=== PATIENT | male | born 1970 | race Caucasian/White ===

== ENCOUNTER 2018-09-23 17:56 | Emergency (ER) | payer OTHER ==
--- NOTE | 2018-09-23 18:43 | RAD ---
PORTABLE CHEST: 09/23/18 HISTORY: Chest pain. Heart size and mediastinum are within normal limits. The lungs are clear of infiltrates. No significa nt bony findings. IMPRESSION: No active intrathoracic disease. POS: OFF
[2018-09-23 18:59] LABS: #Basophils 0.1 thou/uL (0.0-0.2); #Eosinphils 0.2 thou/uL (0.0-0.7); #Lymphocytes 2.7 thou/uL (1.20-3.40); #Monocytes 0.5 thou/uL (0.11-0.59); #Neutrophils 5.6 thou/uL (1.40-6.50); %Eosinophils 2.2 % (0.0-10.0); %Lymphocytes 29.8 % (21.0-51.0); %Monocytes 5.5 % (0.0-10.0); %Neutrophils 61.5 % (42.0-75.0); Hemoglobin 13.7 g/dL (14.0-18.0); Mean Corpuscular Hemoglobin 31.7 pg (27.0-31.0); Mean Corpuscular Volume 93.2 fL (78.0-98.0); Mean Platelet Volume 7.5 fL (7.4-10.4); Platelet Count 296 thou/uL (130-400); Red Blood Cell (RBC) Count 4.34 mill/uL (4.70-6.10); White Blood Cell (WBC) Count 9.1 thou/uL (4.8-10.8)
[2018-09-23 19:31] LABS: ALT (SGPT) 46 U/L (8-55); AST (SGOT) 30 U/L (5-34); Albumin 4.6 g/dL (3.5-5.0); Alkaline Phosphatase 74 U/L (40-150); Anion Gap 15 mmol/L (10-20); BUN (Urea Nitrogen) 15 mg/dL (8.9-20.6); Bilirubin, Total 0.2 mg/dL (0.2-1.2); CK (CPK) 691 U/L (30-200); Calc. Creatinine Clearance 0 mL/min (70-130); Calcium 10.1 mg/dL (7.8-10.44); Carbon Dioxide 28 mmol/L (22-29); Chloride 101 mmol/L (98-107); Estimated GFR-MDRD 71; Globulin 3.4 g/dL (2.4-3.5); Glucose 125 mg/dL (70-105); Lipase 32 U/L (8-78); Potassium 4.3 mmol/L (3.5-5.1); Sodium 140 mmol/L (136-145)
--- NOTE | 2018-09-25 11:05 | EKG ---
Test Reason : CP Blood Pressure : / mmHG Vent. Rate : 071 BPM Atrial Rate : 071 BPM P-R Int : 176 ms QRS Dur : 092 ms QT Int : 424 ms P-R-T Axes : 014 107 026 degrees QTc Int : 460 ms Normal sinus rhythm Rightward axis Prolonged QT Abnormal ECG Confirmed by JOLYNN WHITE ([id number]), assignment desk editor YANETH ESTRADA ([id number]) on 09/25/2018 11:05:36 AM Referred By: Confirmed By:JOLYNN WHITE
== END 2018-09-23 20:32 | disposition home or self-care (01) ==
LOC: ERS 17:56
DX: R07.89 Other chest pain (principal); E03.9 Hypothyroidism, unspecified; F43.10 Post-traumatic stress disorder, unspecified; Z79.899 Other long term (current) drug therapy
CPT/HCPCS: 36415; 71045; 80053; 82550; 83690; 83880; 84484; 85025; 93005

== ENCOUNTER 2023-12-03 11:23 | Inpatient (IN) | payer OTHER, SELFPAY ==
[2023-12-03] MEDS ORDERED: Ondansetron ODT 4 MG TAB ONE (12:05)
[2023-12-03 12:22] LABS: #Basophils Less than 0.03 10x3/uL (0.0-0.2); %Basophils 0.2 % (0.0-1.0); %Eosinophils 0.7 % (0.0-10.0); %Lymphocytes 13.6 % (21.0-51.0); %Monocytes 3.3 % (0.0-10.0); %Neutrophils 81.9 % (42.0-75.0); Hematocrit 49.1 % (42.0-52.0); Hemoglobin 16.2 g/dL (14.0-18.0); Mean Corpuscular Hemoglobin 29.6 pg (27.0-31.0); Mean Corpuscular Volume 89.8 fL (78.0-98.0); Platelet Count 348 10x3/uL (130-400); RBC Distribution Width 12.5 % (11.5-14.5); Red Blood Cell (RBC) Count 5.47 mill/uL (4.70-6.10)
[2023-12-03] MEDS ORDERED: Ketorolac Tromethamine 30 MG (1 mL) VIAL ONE (12:24)
[2023-12-03] MEDS ORDERED: Prochlorperazine 10 MG/2 ML VIAL ONE (12:33)
[2023-12-03 12:37] LABS: ALT (SGPT) 25 U/L (8-55); AST (SGOT) 25 U/L (5-34); Albumin 4.2 g/dL (3.5-5.0); Alkaline Phosphatase 95 U/L (40-110); Anion Gap 13 mmol/L (10-20); BUN (Urea Nitrogen) 13 mg/dL (8.4-25.7); Bilirubin, Total 0.4 mg/dL (0.2-1.2); Calc. Creatinine Clearance 0 mL/min (70-130); Calcium 9.8 mg/dL (7.8-10.44); Carbon Dioxide 25 mmol/L (22-29); Chloride 103 mmol/L (98-107); Estimated GFR 80; Globulin 4.1 g/dL (2.4-3.5); Glucose 167 mg/dL (70-105); Lipase 12 U/L (8-78); Potassium 4.5 mmol/L (3.5-5.1); Protein, Total 8.3 g/dL (6.0-8.3); Sodium 136 mmol/L (136-145)
[2023-12-03] MEDS ORDERED: Iopamidol-370 76% 500 ML MDV (1 ML CHARGE) ONE (13:03)
[2023-12-03 13:08] LABS: Troponin I Less than 0.010 ng/mL (< 0.028)
[2023-12-03 14:26] LABS: Bacteria/HPF None Seen HPF (None Seen); Bilirubin Negative (Negative); Blood, Urine Negative (Negative); CAUTI Indications for Culture Dysuria,urgency,freq; Clarity Clear (Clear); Glucose, Urine (Dipstick) Normal (Negative); Ketone, Urine Trace mg/dL (Negative); Leukocyte Negative Leu/uL (Negative); Nitrite Negative (Negative); Protein, Urine (Dipstick) 20 mg/dL (Neg-Trace); Squamous Epithelial None Seen HPF (0-3); Urobilinogen Normal mg/dL (Less than 2); WBC/HPF 0-3 HPF (0-3); pH, Urine 7.5 (5.0-9.0)
[2023-12-03 14:28] LABS: Specific Gravity, Urine Greater than 1.060 (1.002-1.036)
[2023-12-03 14:30] LABS: Urine Culture Reflex No No
[2023-12-03] MEDS ORDERED: Morphine 4 MG/ML VIAL ONE (15:03)
[2023-12-03] MEDS ORDERED: Ondansetron PF 4 MG/2 ML Vial ONE (15:03)
[2023-12-03] MEDS ORDERED: VALPROATE SODIUM IVPB SCH (15:30)
[2023-12-03] MEDS ORDERED: SODIUM CHLORIDE 0.9% IVPB SCH (15:30)
[2023-12-03] MEDS ORDERED: Ketorolac Tromethamine 30 MG (1 mL) VIAL IVP PRN (17:16)
[2023-12-03] MEDS: Sodium Chloride 0.9% 1,000 ML IV SCH (18:25)
[2023-12-03] MEDS: SODIUM CHLORIDE IVPB SCH (18:41)
[2023-12-03] MEDS: VALPROATE SODIUM IVPB SCH (18:41)
[2023-12-03] MEDS: ADMIXTURE FEE IVPB SCH (18:41)
[2023-12-03 19:48] VITALS: BMI 34.7
[2023-12-03] MEDS: Morphine 2 MG/ML VIAL SLOW IVP PRN (19:48)
[2023-12-04 05:59] LABS: #Basophils 0.03 10x3/uL (0.0-0.2); %Basophils 0.4 % (0.0-1.0); %Eosinophils 1.5 % (0.0-10.0); %Lymphocytes 22.4 % (21.0-51.0); %Monocytes 6.3 % (0.0-10.0); %Neutrophils 69.3 % (42.0-75.0); Hematocrit 46.5 % (42.0-52.0); Hemoglobin 15.3 g/dL (14.0-18.0); Mean Corpuscular HGB CONC 32.9 g/dL (32.0-36.0); Mean Corpuscular Hemoglobin 29.1 pg (27.0-31.0); Mean Corpuscular Volume 88.4 fL (78.0-98.0); Mean Platelet Volume 10.4 fL (7.4-10.4); Platelet Count 314 10x3/uL (130-400); RBC Distribution Width 12.8 % (11.5-14.5); Red Blood Cell (RBC) Count 5.26 mill/uL (4.70-6.10)
[2023-12-04 06:19] LABS: Anion Gap 13 mmol/L (10-20); BUN (Urea Nitrogen) 11 mg/dL (8.4-25.7); Calc. Creatinine Clearance 178 mL/min (70-130); Calcium 8.4 mg/dL (7.8-10.44); Carbon Dioxide 27 mmol/L (22-29); Chloride 102 mmol/L (98-107); Estimated GFR 105; Glucose 129 mg/dL (70-105); Magnesium 2.6 mg/dL (1.6-2.6); Phosphorus 2.5 mg/dL (2.3-4.7); Potassium 3.8 mmol/L (3.5-5.1); Sodium 138 mmol/L (136-145)
[2023-12-04 12:01] VITALS: BP 136/83; TEMP 97.5
[2023-12-05] MEDS ORDERED: Enoxaparin 40 MG (0.4 mL) SYRINGE SC SCH (09:00)
== END 2023-12-04 14:48 | disposition left against medical advice (07) | DRG 390 ==
LOC: ERS 11:23 → SJJU 15:55
PROVIDERS: ADMIT Internal Medicine; ATTEND Internal Medicine
PROC: 0DH67UZ Insertion of Feeding Device into Stomach, Via Natural or Artificial Opening (ICD-10-PCS; principal; 2023-12-03)
DX: K56.609 Unspecified intestinal obstruction, unspecified as to partial versus complete obstruction (principal); E03.9 Hypothyroidism, unspecified; F17.220 Nicotine dependence, chewing tobacco, uncomplicated; F43.10 Post-traumatic stress disorder, unspecified; E27.8 Other specified disorders of adrenal gland; Z79.890 Hormone replacement therapy; Z79.899 Other long term (current) drug therapy; Z87.820 Personal history of traumatic brain injury
CPT/HCPCS: 36415; 71045; 74018; 74177; 80048; 80053; 81001; 83605; 83690; 83735; 84100; 84484; 85025; 93005; 96374; 96375; 96376; J0780; J1885; J2272; J2405; J7030; Q0162; Q9967

== ENCOUNTER 2024-11-16 12:37 | Emergency (ER) | payer OTHER, SELFPAY ==
[2024-11-16] MEDS ORDERED: Iopamidol-370 76% 500 ML MDV (1 ML CHARGE) ONE (15:33)
[2024-11-16] MEDS ORDERED: Orphenadrine Citrate 60 MG/2 ML VIAL ONE (15:43)
[2024-11-16] MEDS ORDERED: PROPOFOL 20 ML ONE ×2 (15:44→16:06)
[2024-11-16 15:53] LABS: #Basophils 0.04 10x3/uL (0.0-0.2); #Eosinophils 0.11 10x3/uL (0.0-0.7); #Monocytes 0.60 10x3/uL (0.11-0.59); #Neutrophils 6.30 10x3/uL (1.40-6.50); %Basophils 0.5 % (0.0-1.0); %Eosinophils 1.3 % (0.0-10.0); %Lymphocytes 18.5 % (21.0-51.0); %Monocytes 6.9 % (0.0-10.0); %Neutrophils 72.6 % (42.0-75.0); Hematocrit 38.7 % (42.0-52.0); Hemoglobin 12.6 g/dL (14.0-18.0); Mean Corpuscular Hemoglobin 29.6 pg (27.0-31.0); Mean Corpuscular Volume 91.1 fL (78.0-98.0); Platelet Count 427 10x3/uL (130-400); Red Blood Cell (RBC) Count 4.25 mill/uL (4.70-6.10); White Blood Cell (WBC) Count 8.67 10x3/uL (4.8-10.8)
[2024-11-16 16:15] LABS: ALT (SGPT) 31 U/L (Less than 45); AST (SGOT) 45 U/L (11-34); Albumin 4.5 g/dL (3.1-4.5); Alkaline Phosphatase 106 U/L (40-110); Anion Gap 15 mmol/L (10-20); BUN (Urea Nitrogen) 12 mg/dL (8.4-25.7); Bilirubin, Total 0.4 mg/dL (0.3-1.2); Calc. Creatinine Clearance 0 mL/min (70-130); Calcium 9.5 mg/dL (7.8-10.44); Carbon Dioxide 27 mmol/L (22-29); Chloride 101 mmol/L (98-107); Globulin 3.8 g/dL (2.4-3.5); Glucose 114 mg/dL (70-105); Potassium 4.0 mmol/L (3.5-5.1); Sodium 139 mmol/L (136-145)
[2024-11-16 16:47] LABS: Bacteria/HPF None Seen HPF (None Seen); CAUTI Indications for Culture Dysuria,urgency,freq; Glucose, Urine (Dipstick) Normal (Negative); Leukocyte Negative Leu/uL (Negative); Protein, Urine (Dipstick) 30 mg/dL (Neg-Trace); RBC/HPF 0-3 HPF (0-3); Specific Gravity, Urine 1.025 (1.002-1.036); WBC/HPF 0-3 HPF (0-3)
[2024-11-16 16:49] LABS: Sperm/HPF 4+ HPF (None Seen)
[2024-11-16 16:51] LABS: Urine Culture Reflex No No
[2024-11-16] MEDS ORDERED: Acetaminophen 325 MG TAB ONE (17:00)
[2024-11-16] MEDS ORDERED: Ketorolac Tromethamine 30 MG (1 mL) VIAL ONE (17:01)
[2024-11-16] MEDS ORDERED: HYDROcodone/Acetaminophen 10/325 mg Tablet ONE (17:43)
== END 2024-11-16 17:46 ==
LOC: ERS 12:37
DX: S43.005A Unspecified dislocation of left shoulder joint, initial encounter (principal); S42.122A Displaced fracture of acromial process, left shoulder, initial encounter for closed fracture; S42.142A Displaced fracture of glenoid cavity of scapula, left shoulder, initial encounter for closed fracture; S30.0XXA Contusion of lower back and pelvis, initial encounter; K80.20 Calculus of gallbladder without cholecystitis without obstruction; R91.1 Solitary pulmonary nodule; E03.9 Hypothyroidism, unspecified; Z79.890 Hormone replacement therapy; F17.220 Nicotine dependence, chewing tobacco, uncomplicated; Y04.2XXA Assault by strike against or bumped into by another person, initial encounter; Z87.820 Personal history of traumatic brain injury; Y92.149 Unspecified place in prison as the place of occurrence of the external cause
CPT/HCPCS: 23650; 71260; 74177; 80053; 81001; 85025; 94760; 96372; 96374; 96375; 99156; J1885; J2270; J2360; J2704; Q9967